=== PATIENT | male | born 1965 | race African-American/Black ===

== ENCOUNTER 2020-11-01 17:17 | Emergency (ER) | payer BC ==
[~2020-11-01] VITALS: Ht 180.3 cm; Wt 69.9 kg
[2020-11-01] MEDS ORDERED: LABETALOL HCL 5 MG/ML 20ML VIAL IV STA (17:41)
[2020-11-01] MEDS ORDERED: SODIUM CHLORIDE 0.9% 1000ML 1,000 ML IV SCH (17:45)
[2020-11-01] MEDS ORDERED: SODIUM CHLORIDE 0.9% 1000ML 1,000 ML ONE (18:17)
[2020-11-01] MEDS ORDERED: HYDRALAZINE HCL 20 MG/ML VIAL ONE (18:43)
[2020-11-01] MEDS ORDERED: HYDRALAZINE HCL 20 MG/ML VIAL IV ONE (18:45)
[2020-11-01] MEDS ORDERED: POTASSIUM CHLORIDE 20 MEQ TAB CR PO STA (19:03)
[2020-11-01] MEDS ORDERED: CLONIDINE HCL 0.1 MG TAB ONE (19:28)
[2020-11-01] MEDS ORDERED: CLONIDINE HCL 0.1 MG TAB PO ONE (19:30)
[2020-11-01] MEDS ORDERED: HYDRALAZINE HCL 20 MG/ML VIAL IV STA (19:44)
[2020-11-01] MEDS ORDERED: ONDANSETRON HCL INJ 2MG/ML 2ML 2 MG/ML VIAL ONE (21:07)
[2020-11-01] MEDS ORDERED: ACETAMINOPHEN 325 MG TAB PO ONE (21:15)
[2020-11-01] MEDS ORDERED: ACETAMINOPHEN 325 MG TAB ONE (21:28)
[2020-11-01] MEDS ORDERED: POTASSIUM CHLORIDE 20 MEQ TAB CR PO ONE (21:28)
[2020-11-01] MEDS ORDERED: CLONIDINE HCL0.2 MG PO (21:52)
[2020-11-01 22:07] VITALS: BP 152/99
== END 2020-11-01 22:23 | disposition home or self-care (01) ==
LOC: FSED 18:00
DX: I10 Essential (primary) hypertension (principal); N28.9 Disorder of kidney and ureter, unspecified; E87.6 Hypokalemia; R51.9 Headache, unspecified; R94.31 Abnormal electrocardiogram [ECG] [EKG]
CPT/HCPCS: 70450; 71046; 80053; 81003; 82553; 84484; 85025; 93005; 99284; J0360; J2405; J7030